=== PATIENT | male | born 1975 | race African-American/Black ===

== ENCOUNTER 2024-03-03 09:34 | Emergency (ER) | payer SELFPAY ==
[~2024-03-03] VITALS: Ht 188 cm; Wt 95.0 kg
[2024-03-03 09:39] VITALS: BP 138/99; PULSE 100; RESP 16; O2SAT 98
[2024-03-03] MEDS: ACETAMINOPHEN 325MG TABLET PO NR (11:00)
[2024-03-03 11:27] VITALS: TEMP 98
[2024-03-03] MEDS ORDERED: IBUP-2028 PO (12:28)
== END 2024-03-03 12:52 | disposition home or self-care (01) ==
LOC: ER 09:34
DX: S93.401A Sprain of unspecified ligament of right ankle, initial encounter (principal); W18.39XA Other fall on same level, initial encounter; Y93.89 Activity, other specified; Y92.89 Other specified places as the place of occurrence of the external cause; Y99.8 Other external cause status
CPT/HCPCS: 73610; 99283